=== PATIENT | female | born 2000 | race African-American/Black ===

== ENCOUNTER 2024-04-07 07:40 | Outpatient (CLI) | payer BC ==
[2024-04-07 09:58] LABS: BHCG - Serum Negative (NEGATIVE); Pregs Control Background? CLEAR/WHITE (CLR/WHITE); Pregs Control Bar Appear? YES (CONTROL BAR)
== END 2024-04-07 07:41 | disposition home or self-care (01) ==
LOC: BICMRI 07:40
PROVIDERS: ATTEND Family Medicine Sports Medicine
DX: M54.16 Radiculopathy, lumbar region (principal); Z32.00 Encounter for pregnancy test, result unknown; M25.561 Pain in right knee
CPT/HCPCS: 36415; 72100; 84703